=== PATIENT | female | born 1955 | race Caucasian/White ===

== ENCOUNTER 2022-04-20 08:21 | Outpatient (RCR) | payer MEDICARE, OTHER, SELFPAY | END 2022-05-13 16:00 | disposition home or self-care (01) | LOC: HO.OT 08:21 | PROVIDERS: PCP Internal Medicine; Visit Provider Nurse Practitioner Women's Health | DX: I89.0 Lymphedema, not elsewhere classified (principal) | CPT/HCPCS: 97140 ==